=== PATIENT | male | born 1950 | race Caucasian/White ===

== ENCOUNTER 2019-06-02 09:40 | Outpatient (CLI) | payer BC ==
[2019-06-02 16:29] LABS: Hemoglobin 14.1 g/dL (14.0-18.0); Mean Corpuscular HGB CONC 32.7 g/dL (32.0-36.0); Mean Corpuscular Hemoglobin 29.6 pg (27.0-31.0); Mean Corpuscular Volume 90.4 fL (78.0-98.0); Mean Platelet Volume 7.2 fL (7.4-10.4); Platelet Count 223 thou/uL (130-400); Red Blood Cell (RBC) Count 4.76 mill/uL (4.70-6.10); White Blood Cell (WBC) Count 7.7 thou/uL (4.8-10.8)
[2019-06-02 16:32] LABS: Bacteria/HPF None Seen HPF (None Seen); Bilirubin Negative (Negative); Blood, Urine Negative (Negative); Clarity Clear (Clear); Glucose, Urine (Dipstick) Normal (Negative); Leukocyte Negative Leu/uL (Negative); Nitrite Negative (Negative); Protein, Urine (Dipstick) Negative (Neg-Trace); RBC/HPF 0-3 HPF (0-3); Squamous Epithelial 0-3 HPF (0-3); Urobilinogen Normal mg/dL (Less than 2); WBC/HPF 0-3 HPF (0-3)
[2019-06-02 16:36] LABS: Prothrombin Time 12.9 SEC (12.0-14.7)
[2019-06-02 16:37] LABS: PTT 36.7 SEC (22.9-36.1)
[2019-06-02 16:42] LABS: Anion Gap 14 mmol/L (10-20); BUN (Urea Nitrogen) 15 mg/dL (8.4-25.7); Calc. Creatinine Clearance 0 mL/min (70-130); Calcium 9.2 mg/dL (7.8-10.44); Carbon Dioxide 27 mmol/L (23-31); Chloride 101 mmol/L (98-107); Estimated GFR-MDRD 43; Glucose 96 mg/dL (80-115); Potassium 4.7 mmol/L (3.5-5.1); Sodium 137 mmol/L (136-145)
--- NOTE | 2019-06-04 16:26 | EKG ---
Test Reason : Blood Pressure : / mmHG Vent. Rate : 070 BPM Atrial Rate : 070 BPM P-R Int : 176 ms QRS Dur : 086 ms QT Int : 412 ms P-R-T Axes : 080 087 076 degrees QTc Int : 444 ms Normal sinus rhythm Normal ECG Confirmed by DR. Maggie QUESADA ([id number]) on 06/04/2019 4:26:05 PM Referred By: WILNER Confirmed By:DR. Maggie QUESADA
== END 2019-06-02 09:41 | disposition home or self-care (01) ==
LOC: LABBT 09:40
PROVIDERS: ATTEND Urology
DX: Z01.818 Encounter for other preprocedural examination (principal); N40.1 Benign prostatic hyperplasia with lower urinary tract symptoms
CPT/HCPCS: 80048; 81001; 85027; 85610; 85730; 87086; 93005; 93010

== ENCOUNTER 2019-06-06 10:21 | Observation (INO) | payer BC ==
[~2019-06-06 10:21] MED LIST: Lidocaine 1% PF 5 ML VIAL ONE; PROPOFOL 200 MG/20 ML VIAL ONE
[2019-06-06] MEDS ORDERED: Levofloxacin 500 mg/D5W 100 ml Premix Bag ONE (11:50)
[2019-06-06] MEDS ORDERED: Fentanyl 100 MCG/2 ML VIAL ONE (12:43)
[2019-06-06] MEDS ORDERED: Ondansetron HCl/PF 4 MG/2 ML Vial IVP PRN (14:10)
[2019-06-06] MEDS ORDERED: Promethazine HCl 25 MG/ML VIAL IM PRN (14:10)
[2019-06-06] MEDS ORDERED: Promethazine HCl 25 MG/ML VIAL SLOW IVP PRN (14:10)
[2019-06-06] MEDS ORDERED: diphenhydrAMINE 50 MG/ML VIAL IVP PRN (14:20)
[2019-06-06] MEDS ORDERED: HYDROcodone/Acetaminophen 5/325 mg Tablet PO PRN (14:20)
[2019-06-06] MEDS ORDERED: Oxybutynin 5 MG TAB PO PRN (14:20)
[2019-06-06] MEDS ORDERED: Ondansetron PF 4 MG/2 ML Vial IVP PRN (14:20)
[2019-06-06] MEDS ORDERED: Morphine 4 MG/ML VIAL SLOW IVP PRN (14:20)
[2019-06-06] MEDS ORDERED: Morphine 4 MG/ML VIAL ONE (15:31)
[2019-06-06] MEDS: Sodium Chloride 0.9% 1,000 ML IV SCH ×2 (16:37→18:03)
[2019-06-06] MEDS: Ketorolac Tromethamine 30 MG/ML VIAL IVP SCH (18:02)
[2019-06-06 18:28] VITALS: BMI 30.7
[2019-06-06] MEDS: traZODone HCl 50 MG TAB PO SCH (20:22)
[2019-06-06] MEDS: Tamsulosin HCl 0.4 MG CAP PO SCH (20:22)
--- NOTE | 2019-06-06 21:04 | OP ---
DATE OF PROCEDURE: 06/06/2019 PREOPERATIVE DIAGNOSIS: Enlarged prostate with lower urinary tract symptoms. POSTOPERATIVE DIAGNOSIS: Enlarged prostate with lower urinary tract symptoms. PROCEDURE PERFORMED: Transurethral resection of prostate. ANESTHESIA: General. COMPLICATIONS: None. SPECIMEN: Prostate chips. BLOOD LOSS: 30 mL. DESCRIPTION OF PROCEDURE: After informed consent, the patient was taken to the operating room, transferred to the table under his own power. Anesthesia was established. A time-out was performed showing the correct patient, site, and procedure. Preoperative antibiotics were administered. He was prepped and draped in the lithotomy position. A rigid resectoscope was passed easily through the urethra noting no recurrence of his stricture disease and finally into the prostatic urethra noting large coapting lateral lobes without a median lobe or high bladder neck. The bladder was then entered and systematically examined noting moderate to severe trabeculation without mucosal abnormalities. Both ureteral orifices were normal in appearance. I began by resecting in the midline at the base of the prostate from the bladder neck back to verumontanum. I then resected his left lobe from 1 o'clock down to the previously resected median lobe or middle of the prostate and then repeated the same procedure on the right side from about 11 o'clock down to midline. Finally, I removed the obstructing anterior tissue. Meticulous hemostasis was achieved. All prostate chips were removed with the Wannado evacuator. Both ureteral orifices were uninjured by resection. I then turned off irrigation, noting no active bleeding until the scope was withdrawn and a 22-[place] three-way catheter was placed. A 30 mL was instilled in the balloon and this was connected to continuous irrigation. He was then awoken from anesthesia, transferred back to his hospital bed and taken to PACU in stable condition, where he will be admitted overnight for continuous bladder irrigation. Job ID: [id number]
[2019-06-07] MEDS: Ketorolac Tromethamine 30 MG/ML VIAL IVP SCH ×4 (00:46→18:22)
[2019-06-07] MEDS: Multivit, Therapeutic 1 TAB PO SCH (08:18)
[2019-06-07] MEDS: Polyethylene Glycol 3350 17 GM Packet PO SCH (08:18)
--- NOTE | 2019-06-07 09:35 | PRG ---
DATE OF SERVICE: 06/07/2019 SUBJECTIVE: The patient was transferred to Oncology Unit due to continuous bladder irrigation. He is not having any discomfort this morning. He denies chest pain, shortness of breath, or suprapubic pain. OBJECTIVE: VITAL SIGNS: Afebrile, vitals stable. GENERAL: In no acute distress. LUNGS: Unlabored breathing. ABDOMEN: Soft, nontender, and nondistended. : Moise catheter draining clear urine, off CBI this morning. ASSESSMENT AND PLAN: Postop day one bipolar transurethral resection of the prostate. It seems that the nursing staff overnight was running his continuous bladder irrigation wide-open when it was not necessary to do so. They became very frustrated with having to empty his bag and so transferred him to a higher level of care. His irrigation does not need to be run this morning and his urine is remaining clear. He is somewhat concerned due to having to transfer overnight and so I am going to observe him through the morning and if he continues to do just as well through mid day, we will discharge him home at that point. Job ID: [id number]
[2019-06-07] MEDS: Sodium Chloride 0.9% 1,000 ML IV SCH (18:22)
[2019-06-07] MEDS: Tamsulosin HCl 0.4 MG CAP PO SCH (20:38)
[2019-06-07] MEDS: traZODone HCl 50 MG TAB PO SCH (20:38)
[2019-06-08] MEDS: Ketorolac Tromethamine 30 MG/ML VIAL IVP SCH ×2 (00:06→06:02)
[2019-06-08] MEDS: Sodium Chloride 0.9% 1,000 ML IV SCH (00:23)
[2019-06-08 07:51] VITALS: BP 146/83; TEMP 97.8
[2019-06-08] MEDS: Multivit, Therapeutic 1 TAB PO SCH (08:27)
[2019-06-08] MEDS: Polyethylene Glycol 3350 17 GM Packet PO SCH (08:27)
--- NOTE | 2019-06-09 14:18 | DIS ---
DATE OF ADMISSION: 06/06/2019 DATE OF DISCHARGE: 06/08/2019 DIAGNOSIS: Enlarged prostate with lower urinary tract symptoms. PROCEDURE PERFORMED: Bipolar transurethral resection of prostate. HOSPITAL COURSE: The patient underwent an uncomplicated bipolar transurethral resection of the prostate. Overnight after the surgery, the nursing staff felt that they could not manage his CBI and so he was transferred to the Oncology Unit. On the morning of postop day 1, his urine was clear on a very slow drip. I transferred him back to the surgical floor and advised that he was stable to go home. However, he was concerned given the fact that he was transferred overnight and so he was maintained as inpatient overnight. The following morning, he was having no problems, tolerating oral diet, requiring no pain medication, urine was clear off CBI, he was deemed stable for discharge home at this point. PLAN: Follow up in 1 week for catheter removal. Postop medications include Bactrim, ibuprofen, docusate, and tramadol. Job ID: [id number]
== END 2019-06-08 10:35 | disposition home or self-care (01) ==
LOC: SDC 10:21 → SURG A 13:05 → EDSTATUS 14:30 → ONC 06-07 00:19 → SURG A 06-07 16:32
PROVIDERS: ADMIT Urology; ATTEND Urology
PROC: 0VT08ZZ Resection of Prostate, Via Natural or Artificial Opening Endoscopic (ICD-10-PCS; principal; 2019-06-06)
DX: N40.1 Benign prostatic hyperplasia with lower urinary tract symptoms (principal); R35.0 Frequency of micturition; R39.15 Urgency of urination; N41.1 Chronic prostatitis; I10 Essential (primary) hypertension; Z79.899 Other long term (current) drug therapy; Z88.2 Allergy status to sulfonamides
CPT/HCPCS: 88305; 96374; 96376; G0378; J1885; J1956; J2001; J2270; J2704; J3010

== ENCOUNTER 2020-04-30 13:20 | Outpatient (CLI) | payer BC ==
--- NOTE | 2020-04-30 14:00 | CT ---
CT Abdomen Pelvis WO Con 04/30/2020 12:00 AM HISTORY: Left ureteral stone. COMPARISON: None. Technique: Multiple contiguous axial CT images are obtained through the abdomen and pelvis without IV contrast. Coronal reformats are provided. FINDINGS: This examination is limited for the evaluation of solid organs and vascular structures due to the lac k of intravenous contrast. Lower Chest: Minimal linear scarring right lung base. Lung bases are otherwise clear. Liver: Grossly normal non-enhanced CT appearance. Gallbladder: Within normal limits for CT imaging. Pancreas: Grossly normal nonenhanced CT appearance. Spleen: Grossly normal nonenhanced CT appearance. Adrenals: Grossly normal nonenhanced CT appearance. Kidneys, ureters, urinary bladder: There are 3 hypodense lesions associated with the left kidney gail uring proximally 2 cm each with 1.4 similar hypodense lesion midportion right kidney which may reflect cysts but are unable to be further evaluated on this nonenhanced CT scan exam. A subcentimete r too small to characterize hypodense lesion is also seen in each kidney. Follow-up renal sonogram or CT scan with IV contrast is recommended. There is a nonobstructing inferior pole left renal calculus measuring 4 mm. A punctate less than 2 mm calculus is seen in the left ureter near the lumbosacral junction. There is questionable mild caliectasis without overt hydronephrosis or hydroureter. No right renal or ureteral calculus is appre ciated. Urinary bladder is incompletely decompressed and not well evaluated on this exam. Reproductive Organs: No pelvic masses. Lymph Nodes: No enlarged lymph nodes. Bowel: Evidence of colonic diverticulosis. Loops of small bowel are normal in caliber. Appendix: The appendix is normal in caliber. Peritoneum: No free fluid, free air, or fluid collection. Retroperitoneum: within normal limits. Vessels: Vascular calcifications seen in the abdominal aorta.. Abdominal Wall: Tiny fat-containing umbilical hernia. Bones: Degenerative changes in the lumbar spine with what appears to be prominent Schmorl's node in t he inferior endplate L2 vertebral body. Transitional vertebra seen at the lumbosacral junction. IMPRESSION: 1. Mid left ureteral calculus seen at the level of the lumbosacral junction which measures approximat cande 1-2 mm. There is no significant hydronephrosis or hydroureter. 2. Nonobstructing bilateral renal calculi. 3. Hypodense bilateral renal lesions which are difficult to characterize on this exam but likely repr esent renal cysts. Follow-up renal sonogram or CT abdomen with IV contrast is recommended. There is cortical scarring involving the left kidney. 4. Colonic diverticulosis.
== END 2020-04-30 13:21 | disposition home or self-care (01) ==
LOC: SCSCT 13:20
PROVIDERS: ATTEND Urology
DX: N20.1 Calculus of ureter (principal); N28.89 Other specified disorders of kidney and ureter; K57.30 Diverticulosis of large intestine without perforation or abscess without bleeding
CPT/HCPCS: 74176